=== PATIENT | female | born 1995 | race Hispanic/Latino ===

== ENCOUNTER 2023-03-11 20:15 | Observation (INO) | payer SELFPAY ==
[2023-03-11 20:47] VITALS: BP 108/63; PULSE 79
[2023-03-11 21:00] VITALS: BP 108/64; PULSE 77
[2023-03-11 21:05] LABS: Appearance Urine Turbid (Clear); Bacteria Urine 1+ /hpf; Bilirubin Urine Negative (Negative); Blood Urine Negative (Negative); Color Urine Yellow (Yellow); Glucose Urine UA Negative (Negative); Ketones Urine Negative (Negative); Leukocyte Esterase Ur 3+ LEU/UL (Negative); Nitrate Urine Negative (Negative); Non Pathogenic Casts 0-2; Protein Urine Negative (Negative); Specific Grav Ur 1.015 (1.001-1.035); Squamous Epithelial Cell Urine Few /hpf (Few); WBC Urine 21-50 /hpf; pH Urine 7.5 (5.0-9.0)
[2023-03-11 21:11] LABS: Add Urine Microscopic? YES
[2023-03-11 21:15] VITALS: BP 111/66; PULSE 78
[2023-03-11 21:30] VITALS: BP 116/63; PULSE 71
[2023-03-11 21:36] VITALS: BMI 26.4
--- NOTE | 2023-03-14 08:34 | PM.OBTRLD ---
OB - Triage/Final Diagnosis Visit Information Date of evaluation: 03/11/23 Reason for evaluation: threatened labor Comments/Additional reasons for admission: I have assessed the risk for this patient, Maci Caruso, and determined that she would benefit from observation care. Evaluation Laboratory results: Laboratory Tests 03/11/23 20:56 Urine Color Yellow Urine Appearance Turbid H Urine pH 7.5 Ur Specific Maynard 1.015 Urine Protein Negative Urine Glucose (UA) Negative Urine Ketones Negative Ur Blood (Man) Negative Urine Nitrate Negative Urine Bilirubin Negative Urine Urobilinogen 1.0 Leukocyte Esterase Rfl 3+ H Urine RBC 3-5 H Urine WBC 21-50 H Ur Squamous Epith Cells Few Urine Bacteria 1+ H Urine Casts 0-2
== END 2023-03-11 22:06 | disposition home or self-care (01) ==
PROVIDERS: Admitting Provider Student in an Organized Health Care Education/Training Program; Visit Provider Student in an Organized Health Care Education/Training Program
DX: O47.03 False labor before 37 completed weeks of gestation, third trimester (principal); Z3A.33 33 weeks gestation of pregnancy; O26.893 Other specified pregnancy related conditions, third trimester; R10.9 Unspecified abdominal pain
CPT/HCPCS: 81001; 87086; 87088; G0378; G0379

== ENCOUNTER 2023-03-23 11:08 | Emergency (ER) | payer SELFPAY ==
[2023-03-23 11:09] VITALS: BP 118/79; PULSE 98; RESP 16; TEMP 37.2; O2SAT 100
--- NOTE | 2023-03-23 11:16 | ECG_ITS ---
Measurements Intervals [place] Rate: 131 P: 55 WI: 139 QRS: 29 QRSD: 78 T: -15 QT: 333 QTc: 492 Interpretive Statements SINUS TACHYCARDIA LOW-VOLTAGE QRS IN PRECORDIAL LEADS NONSPECIFIC ST ABNORMALITY BORDERLINE ECG NO PREVIOUS ECG AVAILABLE FOR COMPARISON Electronically Signed On 03-23-2023 16:00:39 [employer] by Dmitry Ventura M.D.
--- NOTE | 2023-03-23 11:47 | ED.URI ---
HPI - URI/Sore Throat General Chief Complaint: Upper Respiratory Infection Stated Complaint: cough, n/v, Time Seen by Provider: 03/23/23 11:45 Source: patient and family Limitations: language barrier (ESL though reasonable comprehension) History of Present Illness HPI Narrative: 27yo female 35W4D by JONATAN 04/23/23 by ultrasound per patient who presents with cough productive of green phlegm since yesterday. Non bloody. No fevers. She is having some chest pain and feeling weak with a sore throat. Some shortness of breath and rhinorrhea, headache. She didn't know what was safe to take during . LMP June/July. She is currently going to [facility] for routine OBGyn care but is hoping to establish at [facility] since she had a C section for her first delivery but did for her 2nd at [facility] and is hoping again for a . She continues to feel movement. No leakage of fluid, contractions, abdominal pain. Report of nausea/vomiting in triage but patient denies this. Related Data Allergies Allergy/AdvReac Type Severity Reaction Status Date / Time No Known Allergies Allergy Verified 03/23/23 12:19 [facility] Past Medical History Medical History 3 Surgical History Surgical History History of delivery Exam Narrative: GENERAL: Well-appearing, well-nourished, and in no acute distress. HEAD: Normocephalic, atraumatic. EYES: Non injected, non icteric ENT: Nares congested , no epistaxis. Mild erythema at posterior oropharynx. NECK: Supple. No meningismus. No lymphadenopathy. CHEST: Clear to auscultation. No respiratory distress. HEART: Regular rate and rhythm on my exam. . ABDOMEN: Gravid uterus but Soft. EXTREMITIES: Normal range of motion. No lower extremity edema. SKIN: Warm, dry, no rash. NEURO: No focal deficits. Alert and oriented x3. PSYCH: Normal mood and affect. Course Vital Signs Vital signs: Vital Signs Temperature 98.9 F 03/23/23 11:09 Pulse Rate 98 03/23/23 11:09 Respiratory Rate 16 03/23/23 11:09 Blood Pressure 118/79 03/23/23 11:09 Pulse Oximetry 100 03/23/23 11:09 Oxygen Delivery Room Air 03/23/23 11:09 Temperature 98.9 F 03/23/23 11:09 Pulse Rate 98 03/23/23 11:09 Respiratory Rate 16 03/23/23 11:09 Blood Pressure 118/79 03/23/23 11:09 Pulse Oximetry 100 03/23/23 11:09 Oxygen Delivery Room Air 03/23/23 12:00 MDM - URI/Sore Throat MDM Narrative Medical decision making narrative: 27 yo female 35w4d based on JONATAN 04/23/23 (via US per patient) who presents with headache, chest pain, rhinorrhea, shortness of breath, and cough since yesterday. Given initial tachycardia on EKG, and patient's report of chest pain difficulty breathing considered pulmonary embolism. However, symptoms do appear very viral. Will defer further testing at this time. Patient given 1 time dose of dexamethasone given this has been shown to improve time to symptom resolution for pharyngitis. She is also given Tylenol for symptoms. She tests positive for covid. Stable for discharge home. She is prescribed Paxlovid since considered immunocompromised in the setting of . Would like to establish with [facility] to deliver her baby but given referral for [facility] if she desires that alternatively. Differential Diagnosis Differential diagnosis: Likely upper respiratory infection, sinusitis, viral infection, bronchitis, influenza, pharyngitis and other (PE) Lab Data Attestation: I reviewed the patient's lab results. Labs: Lab Results 03/23/23 Range/Units 11:20 SARS-CoV-2 RNA (RT-PCR) Positive A (Negative) ECG Data EKG #1: Attestation: I personally reviewed and interpreted this ECG as follows: ECG completion date: 03/23/23 ECG completion time: 11:19 I
[2023-03-23 12:06] LABS: SARS-CoV-2 RNA PCR Positive (Negative)
[2023-03-23] MEDS: DEXAMETHASONE 2 MG TABLET 10 MG PO (12:26)
[2023-03-23] MEDS: ACETAMINOPHEN 500 MG TABLET 1000 MG PO (12:26)
== END 2023-03-23 13:30 | disposition home or self-care (01) ==
PROVIDERS: Emergency Provider Student in an Organized Health Care Education/Training Program
DX: O98.513 Other viral diseases complicating pregnancy, third trimester (principal); U07.1 COVID-19; O99.891 Other specified diseases and conditions complicating pregnancy; R00.0 Tachycardia, unspecified; R94.31 Abnormal electrocardiogram [ECG] [EKG]; Z3A.35 35 weeks gestation of pregnancy
CPT/HCPCS: 87635; 93005; 99283; A9270; J8540

== ENCOUNTER 2023-03-30 16:05 | Emergency (ER) | payer SELFPAY ==
[2023-03-30 16:14] VITALS: BP 104/65; PULSE 90; RESP 16; TEMP 36.5; O2SAT 98
--- NOTE | 2023-03-30 18:13 | ED.URI ---
HPI - URI/Sore Throat General Chief Complaint: Upper Respiratory Infection Stated Complaint: cough/congestion Time Seen by Provider: 03/30/23 18:13 Source: patient Mode of arrival: ambulatory Limitations: no limitations History of Present Illness HPI Narrative: Patient is a 27 y/o female who presents to the ED with c/o COVID. Patient reports she was seen in the ED here for cold symptoms on 03/23. She was diagnosed with COVID-19. She was started on Paxlovid as she is currently . Patient states she took this medication as prescribed, but denies improvement of symptoms. Reports persistent cough, congestion, intermittent fevers. Reports cough worse at night causing her to have trouble sleeping. Patient has not taken anything further for her symptoms. Denies dyspnea, HAJI, CP, vomiting. Patient is and currently 37 weeks gestation. Patient states she has been seeing a gynecologic clinic in [place], [place]. Does not know who her OB is or who will deliver her baby. Think she will deliver at [facility] or [facility]. States she last had an US yesterday, which was normal. Denies abdominal pain, vaginal bleeding, leakage of fluid. She is feeling baby move. Related Data Allergies Allergy/AdvReac Type Severity Reaction Status Date / Time No Known Allergies Allergy Verified 03/30/23 18:16 Review of Systems Review of Systems: CONSTITUTIONAL: See HPI. ENT: See HPI. CARDIOVASCULAR: Denies chest pain. RESPIRATORY: See HPI. GASTROINTESTINAL: Denies abdominal pain, nausea, vomiting, or diarrhea. GENITOURINARY: Denies vaginal bleeding, dysuria or hematuria. All systems reviewed & are unremarkable except as noted in HPI and below PMFSH Past Medical History Medical History 3 Surgical History Surgical History History of delivery Exam Narrative: GENERAL: Well appearing, well-nourished, non-toxic, in no acute distress. HEAD: Normocephalic, atraumatic. RESPIRATORY: Airway patent, respirations nonlabored. Clear to auscultation bilaterally, no rales, rhonchi, wheezing. No focal lung sounds. CARDIOVASCULAR: Regular rate and rhythm without murmurs, rubs, or gallops. ABDOMINAL: Uterus gravid. MUSCULOSKELETAL: Moves all extremities. No gross deformities. SKIN: Warm, dry, normal color. NEURO: A&O X3. Speech clear. Cranial nerves II-XII grossly intact. No ataxic movements. PSYCHIATRIC: Appropriate mood and affect. Normal interaction. Course Vital Signs Vital signs: Vital Signs Temperature 97.7 F 03/30/23 16:14 Pulse Rate 90 03/30/23 16:14 Respiratory Rate 16 03/30/23 16:14 Blood Pressure 104/65 03/30/23 16:14 Pulse Oximetry 98 03/30/23 16:14 Oxygen Delivery Room Air 03/30/23 16:14 Temperature 97.7 F 03/30/23 16:14 Pulse Rate 90 03/30/23 16:14 Respiratory Rate 16 03/30/23 16:14 Blood Pressure 104/65 03/30/23 16:14 Pulse Oximetry 98 03/30/23 16:14 Oxygen Delivery Room Air 03/30/23 16:14 MDM - URI/Sore Throat MDM Narrative Medical decision making narrative: Patient with known COVID-19, reporting persistent cough. Has not tried anything for symptoms. Completed course of Paxlovid since Dx given status. Vitals stable. No acute distress. Patient denying abdominal pain, bleeding, leakage of fluid, decreased movement. Discussed that patient's symptoms are consistent with COVID-19. Discussed management of cough, [id number] therapies that are safe. Patient denying chest pain or significant shortness of breath. Will be discharged. Advised close follow-up with OBGYN, will provide on-call OB information as patient reports lack of care. She states she will just go to [facility] when she goes into labor. Patient given return precautions. D/C in stable condition. Medical Records Attestation: I reviewed
[2023-03-30 18:51] VITALS: RESP 16
== END 2023-03-30 18:51 | disposition home or self-care (01) ==
LOC: ANHED 18:54
PROVIDERS: Emergency Provider Physician Assistant
DX: O98.513 Other viral diseases complicating pregnancy, third trimester (principal); U07.1 COVID-19; Z3A.37 37 weeks gestation of pregnancy
CPT/HCPCS: 99281